=== PATIENT | male | born 1985 | race African-American/Black ===

== ENCOUNTER → 2016-09-22 | Emergency (ER) | payer OTHER ==
[~2016-09-22] VITALS: Ht 170.2 cm; Wt 92.5 kg
[~2016-09-22] MED LIST: BACTRIM DS TAB1 EAC1 ORAL; BACTRIM-DS1 EA ORAL; CLINDAMYCIN HC150 MG ORAL; IBUPROFEN600 MG ORAL; KEFLEX500 MG ORAL; PERCOCET 5-3251 EACH ORAL
[2016-09-22 20:45] VITALS: BP 115/70
[2016-09-22 21:05] VITALS: BP 115/70
--- NOTE | 2016-09-24 07:55 | Emergency Room Report ---
History of Present Illness General Chief Complaint: Skin Rash/Abscess Source: Patient Present Illness HPI 31-year-old male presents ED for evaluation of left thumb pain and swelling. Patient states that her last 10 days he has had pain and swelling to his left thumb. patient believes she was stuck with a splinter in his left thumb at work and he pulled it out. Tetanus is up-to-date. Patient notes pain and swelling since. Pain as throbbing, 5/10, nonradiating. No aggravating or relieving factors. Denies any discharge. Denies any other associated symptoms. Allergies: Coded Allergies: No Known Allergies (Unverified , 09/22/16) Patient History Past Medical History: none Past Surgical History: none Pertinent Family History: none Social History: Denies: alcohol use, drug use, smoking Immunizations: UTD Reviewed Nursing Documentation: PMH: Agreed, PSxH: Agreed Nursing Documentation-PMH Past Medical History: No Stated History Review of Systems All Other Systems: negative except mentioned in HPI Physical Exam Vital Signs Date Time Temp Pulse Resp B/P Pulse Ox O2 Delivery O2 Flow Rate FiO2 09/22/16 20:35 98.4 84 20 115/70 96 Room Air Sp02 EP Interpretation: reviewed, normal General Appearance: no apparent distress, alert, GCS 15, non-toxic Head: normocephalic Eyes: bilateral eye PERRL, bilateral eye normal inspection ENT: normal ENT inspection Neck: normal inspection Respiratory: normal inspection Cardiovascular #1: normal inspection Gastrointestinal: normal inspection Rectal: deferred Genitourinary: no CVA tenderness Musculoskeletal: swelling - L thumb Neurologic: alert, oriented x3, responsive, motor strength/tone normal, sensory intact, speech normal Psychiatric: normal inspection Skin: normal inspection Lymphatic: normal inspection Medical Decision Making Diagnostic Impression: Primary Impression: Cellulitis of thumb Qualified Codes: L03.012 - Cellulitis of left finger ER Course Hospital Course 31-year-old male presents to ED with redness, swelling to left thumb Differential diagnoses include: Cellulitis, dermatitis, insect bite, abscess Clinical course Patient placed on stretcher. After initial history, physical exam reveals a male in no acute distress. On exam there is a site for mild erythema and swelling to the L thumb. There is no fluctuance. I did not identify any evidence of foreign body. Or fluctuant suggesting abscess will treat with abx Diagnosis - cellulitis of thumb stable and discharged to home with prescription for Keflex. Instructed to followup with PMD. Instructed return to ED if symptoms recur or worsen Last Vital Signs Date Time Temp Pulse Resp B/P Pulse Ox O2 Delivery O2 Flow Rate FiO2 09/22/16 21:05 98.4 84 20 115/70 96 Room Air Status: improved Disposition: HOME, SELF-CARE Condition: Stable Scripts Cephalexin* (KEFLEX*) 500 Mg Capsule 500 MG ORAL Q6H, #28 CAP 0 Refills Prov: SHERRI LARSEN M.D. 09/22/16 Ibuprofen* (MOTRIN*) 600 Mg Tablet 600 MG ORAL Q8H Y for For Pain, #30 TAB 0 Refills Prov: SHERRI LARSEN M.D. 09/22/16 Referrals: [facility]ERR[facility] (PCP) Patient Instructions: Cellulitis, [id number] SHERRI LARSEN M.D. Sep 24, 2016 07:55
== END | disposition home or self-care (01) ==
LOC: EMR 20:52
DX: L03.012 Cellulitis of left finger (principal)
CPT/HCPCS: 99282

== ENCOUNTER 2016-09-25 20:19 | Inpatient (IN) | payer OTHER ==
[~2016-09-25] VITALS: Ht 170.2 cm; Wt 92.5 kg
[~2016-09-25 20:19] MED LIST changes: -BACTRIM DS TAB1 EAC1 ORAL; -BACTRIM-DS1 EA ORAL; -CLINDAMYCIN HC150 MG ORAL; -PERCOCET 5-3251 EACH ORAL
[2016-09-25 20:41] VITALS: BP 135/72
[2016-09-25] MEDS ORDERED: Ketorolac 30mg Inj IV ONE (21:00)
[2016-09-25] MEDS ORDERED: Lidocaine 1% MPF 10mg/ml 5ml INJ ONE (21:00)
[2016-09-25] MEDS ORDERED: fentaNYL 100 mcg/2 mL IV ONE (21:00)
[2016-09-25] MEDS ORDERED: Vancomycin 1.5gm/D5W 300ml 325 ML IVPB ONE (21:00)
[2016-09-25 22:16] LABS: BASOPHILS % (AUTO) 1.1 % (0.0-2.0); EOSINOPHILS % (AUTO) 2.2 % (0.0-3.0); LYMPHOCYTES % (AUTO) 30.8 % (20.0-45.0); MEAN CORPUSCULAR HEMOGLOBIN 29.5 PG (27.0-31.0); MEAN CORPUSCULAR HGB CONC 31.9 G/DL (32.0-36.0); MEAN CORPUSCULAR VOLUME 92 FL (80-99); MEAN PLATELET VOLUME 6.4 FL (6.5-10.1); MONOCYTES % (AUTO) 7.4 % (1.0-10.0); NEUTROPHILS % (AUTO) 58.5 % (45.0-75.0); PLATELET COUNT 251 K/UL (150-450); RED BLOOD COUNT 4.56 M/UL (4.70-6.10); WHITE BLOOD COUNT 10.7 K/UL (4.8-10.8)
[2016-09-25 22:23] LABS: TROPONIN I < 0.30 ng/mL (<=0.30)
[2016-09-25 22:26] LABS: ALANINE AMINOTRANSFERASE 38 U/L (3-41); ALBUMIN/GLOBULIN RATIO 1.4 (1.0-2.7); ANION GAP 15 (5-15); ASPARTATE AMINO TRANSFERASE 20 U/L (5-40); CALCIUM 9.6 mg/dL (8.6-10.2); CARBON DIOXIDE 26 mEQ/L (20-30); CHLORIDE 101 mEQ/L (98-107); CREATININE 0.9 mg/dL (0.7-1.2); GLOMERULAR FILTRATION RATE > 60 mL/min (>60); HEMOLYSIS 4; POTASSIUM 3.4 mEQ/L (3.4-4.9); SODIUM 142 mEQ/L (135-145); TOTAL PROTEIN 7.3 g/dL (6.6-8.7)
--- NOTE | 2016-09-25 23:24 | Emergency Room Report ---
History of Present Illness General Chief Complaint: General Complaint Source: Patient Present Illness [facility] The patient presents with several days of worsening pain in his left thumb he was seen here the night ago and started on Keflex. Thumb has continued to swell and get worse. The nail has changed color. The patient states his last tetanus was less than 10 years ago. He been taking the Keflex and Motrin but the pain is severe at this time. It radiates up into his hand and also into his index finger also. He has some decreased range of motion there. The patient works as moving boxes and also plays basketball and doesn't remember injuring the thumb. R handed. His noticed that he had sweats last night. He denies any chills or fevers. No nausea vomiting diarrhea dysuria chest pain shortness of breath. Allergies: Coded Allergies: No Known Allergies (Unverified , 09/22/16) Patient History Past Medical History: see triage record Social History: Reports: smoking Social History Narrative Reviewed Nursing Documentation: PMH: Agreed, PSxH: Agreed Nursing Documentation-PMH Past Medical History: No Stated History Review of Systems All Other Systems: negative except mentioned in HPI Physical Exam Vital Signs Date Time Temp Pulse Resp B/P Pulse Ox O2 Delivery O2 Flow Rate FiO2 09/25/16 20:33 99.1 101 16 99 Room Air 09/25/16 20:41 135/72 Sp02 EP Interpretation: reviewed, normal General Appearance: well appearing, no apparent distress, GCS 15, non-toxic Head: normocephalic, atraumatic Eyes: bilateral eye PERRL, bilateral eye other ENT: hearing grossly normal, normal voice, moist mucus membranes Neck: full range of motion, supple Respiratory: lungs clear, no respiratory distress, speaking full sentences Cardiovascular #1: regular rate, rhythm Cardiovascular #2: 2+ radial (L) Gastrointestinal: normal bowel sounds, non tender, no organomegaly Musculoskeletal: gait/station normal, decreased range of mation - no tendon tenderness, inflammation, swelling, other - 1/2 of nail with pus Neurologic: alert, motor strength/tone normal, sensory intact, normal gait, speech normal, grossly normal Psychiatric: mood/affect normal Skin: normal color, well hydrated, other - paronychium involving 1/2 of nail and swelling pulp of finger Procedures Incision and Drainage Incision and Drainage : Consent: Verbal Blade Size: wedge resection of nail I & D Procedure: betadine prep, sterile drapes applied, sterile dressing applied, gauze wick placed Wound Location: other - L thumb Wound Explored: copious amounts of pus expressed Irrigated w/ Saline (ccs): 20 Anesthesia: 1% Lidocaine - ring block Volume Anesthetic (ccs): 9 Splint Applied?: No - sling applied by tech - position excellent with vasc intact (anesthetized) Sling Applied?: Yes Patient Tolerated: Well Complications: None Progress Wedge resection of nail, minimal debridement of devitalized tissue. Irrigated with NS. Packed - both deep along bone and into pulp and also under nail. Good blood flow after ring block. Finger anesthetized. Tolerated well. Medical Decision Making Diagnostic Impression: Primary Impression: Acute paronychia Additional Impressions: Cellulitis of thumb Qualified Codes: L03.012 - Cellulitis of left finger Possible early osteomyelitis ER Course The patient presents with obvious paronychia and infection of the left thumb. This needs to be incised and drained. Also this infection is fairly significant and IV antibiotics will be started. In addition to that labs will be obtained. This includes a sedimentation rate also. Labs with high normal WBC and elevated ESR. Clinical infection is significant and doubt xray helpful. Large amount of pus was expressed during I and D. A needle 18-gauge was used to try and determine if there is a infection in the pulp of the finger. This came back dry. The wound was packed. The sedimentation rate is elevated concern about possible early osteomyelitis. The patient is admitted to the hospital for continued IV antibiotics and also evaluation by orthopedic doctor. Laboratory Tests Test 09/25/16 21:45 White Blood Count 10.7 K/UL (4.8-10.8) Red Blood Count 4.56 M/UL (4.70-6.10) L Hemoglobin 13.4 G/DL (14.2-18.0) L Hematocrit 42.1 % (42.0-52.0) Mean Corpuscular Volume 92 FL (80-99) Mean Corpuscular Hemoglobin 29.5 PG (27.0-31.0) Mean Corpuscular Hemoglobin Concent 31.9 G/DL (32.0-36.0) L Red Cell Distribution Width 11.0 % (11.6-14.8) L Platelet Count 251 K/UL (150-450) Mean Platelet Volume 6.4 FL (6.5-10.1) L Neutrophils (%) (Auto) 58.5 % (45.0-75.0) Lymphocytes (%) (Auto) 30.8 % (20.0-45.0) Monocytes (%) (Auto) 7.4 % (1.0-10.0) Eosinophils (%) (Auto) 2.2 % (0.0-3.0) Basophils (%) (Auto) 1.1 % (0.0-2.0) Erythrocyte Sedimentation Rate 20 MM/HR (0-15) H Sodium Level 142 mEQ/L (135-145) Potassium Level 3.4 mEQ/L (3.4-4.9) Chloride Level 101 mEQ/L (98-107) Carbon Dioxide Level 26 mEQ/L (20-30) Anion Gap 15 (5-15) Blood Urea Nitrogen 8 mg/dL (7-23) Creatinine 0.9 mg/dL (0.7-1.2) Estimate Glomerular Filtration Rate > 60 mL/min (>60) Glucose Level 135 mg/dL (74-106) H Calcium Level 9.6 mg/dL (8.6-10.2) Total Bilirubin 0.3 mg/dL (0.0-1.2) Aspartate Amino Transferase (AST) 20 U/L (5-40) Alanine Aminotransferase (ALT) 38 U/L (3-41) Alkaline Phosphatase 111 U/L (40-129) Total Creatine Kinase 72 U/L (38-174) Troponin I < 0.30 ng/mL (<=0.30) Total Protein 7.3 g/dL (6.6-8.7) Albumin 4.3 g/dL (3.5-5.2) Globulin 3.0 g/dL Albumin/Globulin Ratio 1.4 (1.0-2.7) Last Vital Signs Date Time Temp Pulse Resp B/P Pulse Ox O2 Delivery O2 Flow Rate FiO2 09/26/16 03:35 98.7 67 19 135/81 99 Room Air Status: improved Disposition: ADMITTED INPATIENT Condition: Serious Scripts Trimethoprim/Sulfamethoxazole (Bactrim Ds Tablet) 1 Each Tablet 1 TAB ORAL TWICE A DAY, #14 TAB Prov: Shemar Howe M.D. 09/25/16 Oxycodone/Acetaminophen 5-325* (PERCOCET 5-325 MG TABLET*) 1 Each Tablet 1 TAB ORAL Q6H Y for For Pain, #10 TAB 0 Refills Prov: Shemar Howe M.D. 09/25/16 Referrals: [facility],REFERRING (PCP) Shemar Howe M.D. Sep 25, 2016 23:24
[2016-09-25 23:27] LABS: ERYTHROCYTE SEDIMENTATION RATE 20 MM/HR (0-15)
[2016-09-25 23:32] VITALS: BP 151/82
[2016-09-25] MEDS ORDERED: PERCOCET 5-3251 EACH ORAL (23:32)
[2016-09-25] MEDS ORDERED: BACTRIM-DS1 EA ORAL (23:32)
[2016-09-26 00:40] LABS: APPEARANCE,URINE CLEAR; KETONES,URINE NEGATIVE (NEGATIVE); NITRITE,URINE NEGATIVE (NEGATIVE); PH,URINE 6 (4.5-8.0); PROTEIN,URINE NEGATIVE (NEGATIVE); UROBILINOGEN,URINE 1 MG/DL (0.0-1.0)
[2016-09-26 00:44] LABS: LEUKOCYTE ESTERASE ,URINE NEGATIVE (NEGATIVE)
[2016-09-26 03:22] VITALS: BP 135/81
[2016-09-26 05:00] VITALS: BP 111/56
[2016-09-26] MEDS ORDERED: Mylanta II UD 30ml ORAL PRN (06:15)
[2016-09-26] MEDS ORDERED: Miralax 17gm pkt ORAL PRN (06:15)
[2016-09-26] MEDS ORDERED: Morphine Sulfate 2mg/ml Inj IVP PRN (06:15)
[2016-09-26] MEDS ORDERED: LORazepam Inj 2mg/ml 1ml IV PRN (06:15)
[2016-09-26] MEDS ORDERED: Zolpidem 5mg tab ORAL PRN (06:15)
[2016-09-26 08:13] VITALS: BP 118/74
[2016-09-26] MEDS ORDERED: Heparin 5000 units/ml inj SUBQ SCH (09:00)
[2016-09-26] MEDS ORDERED: Vancomycin 2gm/D5W 550ml IVPB SCH ×2 (09:00)
[2016-09-26 11:41] VITALS: BP 120/57
--- NOTE | 2016-09-26 12:19 | Consultation ---
Consult Note [facility] [id number] GUILLE MONSON M.D. Sep 26, 2016 12:19
[2016-09-26] MEDS ORDERED: Cefepime HCl 1 GM in D5W 55 ML IV SCH (14:00)
[2016-09-26] MEDS ORDERED: BACTRIM DS TAB1 EAC1 ORAL (14:10)
[2016-09-26] MEDS ORDERED: CLINDAMYCIN HC150 MG ORAL (14:11)
[2016-09-26] MEDS ORDERED: NS 550ML IV ONE (14:49)
[2016-09-26] MEDS ORDERED: Tubing IV Secondary IV ONE (14:49)
--- NOTE | 2016-09-26 16:47 | Consultation ---
DATE OF CONSULTATION: INFECTIOUS DISEASE CONSULTATION CONSULTING PHYSICIAN: Jonathan Hassna M.D. REFERRING PHYSICIAN: Faiza Joseph M.D. REASON FOR CONSULTATION: Evaluation of the patient for left first thumb cellulitis and ingrown nail. HISTORY OF PRESENT ILLNESS: The patient is a 31-year-old male with no significant past medical history, who came to the hospital with chief complaint of swelling and tenderness of the left thumb. The patient has swelling in the area, given Keflex as outpatient without significant improvement. The patient was admitted here with ingrown nail and cellulitis of the left thumb. The patient has been started on IV antibiotics. An Infectious Disease consultation has been requested for further evaluation of the patient. PAST MEDICAL HISTORY: None. PAST SURGICAL HISTORY: None. MEDICATIONS: Cefepime and vancomycin. ALLERGIES: No known drug allergies. SOCIAL HISTORY: Significant for smoking. No history of alcohol or drug abuse. FAMILY HISTORY: Noncontributory. PHYSICAL EXAMINATION: VITAL SIGNS: Temperature 98 degrees, pulse 86, respiratory rate 18, and blood pressure 120/57. HEENT: Mild pale conjunctivae. No icterus. NECK: No lymphadenopathy. CHEST: Coarse breathing sounds. HEART: S1 and S2. ABDOMEN: Soft. EXTREMITIES: The patient has swelling and tenderness of the left thumb. Also the patient's partial nail has been removed. NEUROLOGIC: Awake and alert. LABORATORY AND DIAGNOSTIC DATA: White cell 10, hemoglobin 13, and platelets 251,000. Urinalysis unremarkable. BUN is 8 and creatinine 0.8. ALT, AST and alkaline phosphatase within normal range. ASSESSMENT: The patient is a 31-year-old male with no medical problems who has cellulitis of the left thumb. The patient was admitted with impression of cellulitis, has been started on IV vancomycin. PLAN: 1. We will continue the patient on IV vancomycin in the hospital. Upon discharge, we will switch to Bactrim and clindamycin for one week. 2. Monitor CBC. 3. Monitor BMP. Thank you, Dr. Joseph, for allowing me to participate in the care of this patient. I will follow the patient with you during this hospitalization. Jonathan Hassan M.D. DR: HELEN JOB#: [id number] CC:
[2016-09-27] MEDS ORDERED: PERCOCET 5-3251 EACH ORAL (09:45)
--- NOTE | 2016-09-29 14:15 | Discharge Summary ---
Discharge Summary Hospital Course Date of Admission Sep 26, 2016 at 03:00 Date of Discharge Sep 26, 2016 at 14:50 Admitting Diagnosis Felon/possible osteomyelitis Left thumb HPI Elliot Mills is a 31 year old male who was admitted on Sep 26, 2016 at 03: 00 for Felon/Possible Osteomyelitis Left Thumb Hospital Course dc summary #[id number] Discharge Medications New Medications: Trimethoprim/Sulfamethoxazole 160/800* (Bactrim Ds Tablet*) 1 Each Tablet 1 TAB ORAL TWICE A DAY, #14 TAB Continued Medications: Clindamycin Hcl* (Clindamycin Hcl*) 150 Mg Capsule 300 MG ORAL TID for 7 Days, CAP Ibuprofen* (Motrin*) 600 Mg Tablet 600 MG ORAL Q8H PRN for For Pain, #30 TAB 0 Refills Oxycodone/Acetaminophen 5-325* (Percocet 5-325 Mg Tablet*) 1 Each Tablet 1 TAB ORAL Q6H PRN for For Pain, #8 TAB 0 Refills Trimethoprim/Sulfamethoxazole 160/800* (Bactrim Ds Tablet*) 1 Each Tablet 1 TAB ORAL TWICE A DAY for 7 Days, TAB Discontinued Medications: Cephalexin* (Keflex*) 500 Mg Capsule 500 MG ORAL Q6H, #28 CAP 0 Refills Discharge Condition Upon Discharge: stable Discharge Disposition Patient was discharged to Home (01) Discharge Diagnoses: Discharge Instructions Discharge Instructions Special Instructions I have been assigned to complete a D/C Summary on this account. I was not involved in the patient management Mikala Vance NP (Vanchtein) Sep 29, 2016 14:15
[2016-09-29] MEDS ORDERED: BACTRIM DS TAB1 EAC1 ORAL (14:17)
--- NOTE | 2016-09-30 16:47 | Discharge Summary 2 SIG ---
DATE OF ADMISSION: 09/26/2016 DATE OF DISCHARGE: 09/26/2016 REASON FOR ADMISSION: This is a 31-year-old male who came to the emergency room complaining of the left thumb pain. The patient had already several days of worsening pain in his left thumb . He had seen emergency room doctor the day prior. He was started on the Keflex; however, he came the next day since the thumb continued to swell and get worse , the nail changed color- according to the patient. The patient stated that his tetanus shot was less than 10 years ago. He reported taking Keflex and Motrin, but the pain was more severe and radiated down to his hand and his index finger. He reported decreased range of motion. He denied fever or chills; however, the noted that the patient had sweats last night. No nausea. No vomiting. No diarrhea. No dysuria. No chest pain. No shortness of breath. The patient reported moving boxes and playing basketball; however, he does not remember injuring his thumb. He is right-handed. In the emergency room, the patient subsequently undergone wedge resection of the left thumb nail. The patient was anesthetized and copious amount of pus was expressed, devitalizing tissue minimally debrided, finally irrigated with normal saline and packed. The patient tolerated the procedure well. However, there was a concern of possible cellulitis versus early osteomyelitis. The patient was admitted for ID consult. ADMITTING DIAGNOSES: 1. Acute paronychia. 2. Status post wedge resection of left thumb nail. 3. Cellulitis of left thumb. 4. Rule out early osteomyelitis. HOSPITAL COURSE: The patient admitted to Med/Surg floor. The patient was started on empiric antibiotics. ID consult was requested. ID recommended as inpatient continue IV vancomycin. However, upon discharge, the patient can go home on oral Bactrim and clindamycin for one week. The patient cleared for discharge from infectious disease doctor. At this time, he needs to be closely observed. From ID standpoint, there was no concern for possible osteomyelitis. The patient was discharged that day with followup next day for dressing change and packing in the emergency department. FINAL DIAGNOSES: 1. Acute paronychia. 2. Status post wedge resection of left thumbnail. 3. Cellulitis of left thumb. DISCHARGE MEDICATIONS: See medication reconciliation list. He needs to have Bactrim and clindamycin for one week. DISCHARGE INSTRUCTIONS: The patient was discharged home. Follow up with primary medical doctor for change of packing; however, on 09/27/2015, ID recommended to come to the emergency department , thus emergency room doctor can take a look if his thumb healing well and assess wound as well as change dressing. The patient verbalized understanding. The patient was stable for discharge. I have been assigned to dictate discharge summary on this account and I was not involved in the patient's management. Faiza Joseph M.D. I have been assigned to dictate discharge summary on this account and I was not involved in the patient's management. Mikala MuseGowanda State HospitalGarcia N.PDemar DR: CARLOS JOB#: [id number] CC: DENISE
== END 2016-09-26 14:50 | disposition home or self-care (01) | DRG 383 ==
LOC: EMR 21:10 → 4W 09-26 03:00 → EDBEDREQ 09-26 03:21 → 4W 09-26 03:36 → EMR 09-26 03:36 → 4W 09-26 06:01
PROC: 0HBQXZZ Excision of Finger Nail, External Approach (ICD-10-PCS; principal; 2016-09-26)
DX: L03.012 Cellulitis of left finger (principal); F17.200 Nicotine dependence, unspecified, uncomplicated
CPT/HCPCS: 10060; 36415; 80053; 81003; 82550; 84484; 85025; 85651; J2405

== ENCOUNTER 2016-09-27 07:33 | Emergency (ER) | payer OTHER ==
[~2016-09-27] VITALS: Ht 175.3 cm; Wt 95.3 kg
[~2016-09-27 07:33] MED LIST changes: +BACTRIM DS TAB1 EAC1 ORAL; +BACTRIM-DS1 EA ORAL; +CLINDAMYCIN HC150 MG ORAL; +PERCOCET 5-3251 EACH ORAL
--- NOTE | 2016-09-27 07:53 | Emergency Room Report ---
History of Present Illness General Chief Complaint: Wound Recheck/Suture Removal Source: Patient Present Illness HPI Patient presents after an I and d of a paronychia of L thumb. This is a deep infection in the finger he was admitted for IV antibiotics for 24 hours. He is here for repacking of the wound. He took Aleve before coming in. The pain has been quite a bit better. Denies any fevers. There was a wedge resection. ESR was elevated. Allergies: Coded Allergies: No Known Allergies (Unverified , 09/22/16) Patient History Past Medical History: see triage record Social History: Reports: smoking Social History Narrative works with stocking Reviewed Nursing Documentation: PMH: Agreed, PSxH: Agreed Nursing Documentation-PMH Past Medical History: No Stated History Hx Cardiac Problems: No Hx Cancer: No Hx Gastrointestinal Problems: No Hx Neurological Problems: No Review of Systems Constitutional: Reports: see HPI Respiratory: Denies: shortness of breath Cardiovascular: Denies: chest pain Gastrointestinal: Denies: diarrhea, nausea, vomiting Musculoskeletal: Reports: see HPI Skin: Reports: see HPI Psychiatric: Reports: anxiety Neurological: Reports: see HPI, Denies: numbness Physical Exam Vital Signs Date Time Temp Pulse Resp B/P Pulse Ox O2 Delivery O2 Flow Rate FiO2 09/27/16 07:38 98.2 78 20 135/76 99 Room Air Sp02 EP Interpretation: reviewed, normal General Appearance: well appearing, no apparent distress Head: normocephalic, atraumatic ENT: hearing grossly normal, normal voice Neck: full range of motion, supple Respiratory: no respiratory distress, speaking full sentences Cardiovascular #2: 2+ radial (L) - good cap fill Musculoskeletal: gait/station normal, normal range of motion, swelling - but decreased from 2 days Neurologic: alert, sensory intact - of thumb, normal gait, grossly normal Psychiatric: mood/affect normal Skin: other - swelling is decreased, less erythema. packings in place (nail and next to nail into mid finger) Medical Decision Making Diagnostic Impression: Primary Impression: Encounter for dressing change or suture removal Additional Impression: Acute paronychia ER Course Here for packing replacement. Packing removed. Pain with this. Analgesia given. Lidocaine, hydrogen peroxide. Packing replaced. Discussed care and return. Improved from initial treatment. Patient stable for outpatient observation and treatment. Last Vital Signs Date Time Temp Pulse Resp B/P Pulse Ox O2 Delivery O2 Flow Rate FiO2 09/27/16 10:05 98.2 72 18 132/74 99 Room Air Status: improved Disposition: HOME, SELF-CARE Condition: Improved Scripts Oxycodone/Acetaminophen 5-325* (PERCOCET 5-325 MG TABLET*) 1 Each Tablet 1 TAB ORAL Q6H Y for For Pain, #8 TAB 0 Refills Prov: Shemar Howe M.D. 09/27/16 Referrals: [facility]ERR[facility] (PCP) Shemar Howe M.D. Sep 27, 2016 07:53
[2016-09-27] MEDS ORDERED: Oxycodone/Acetaminophen 5-325 ORAL ONE (08:00)
[2016-09-27] MEDS ORDERED: Hydrogen Peroxide 120ml Bottle TOPIC ONE (08:00)
[2016-09-27] MEDS ORDERED: Lidocaine 1% MPF 10mg/ml 5ml INJ ONE (08:00)
[2016-09-27 08:11] VITALS: BP 135/76
[2016-09-27] MEDS ORDERED: PERCOCET 5-3251 EACH ORAL (09:45)
[2016-09-27 10:03] VITALS: BP 132/74
[2016-09-27 10:05] VITALS: BP 132/74
[2016-09-29] MEDS ORDERED: BACTRIM DS TAB1 EAC1 ORAL (14:17)
== END 2016-09-27 10:07 | disposition home or self-care (01) ==
LOC: EMR 07:48
DX: Z48.00 Encounter for change or removal of nonsurgical wound dressing (principal); F17.200 Nicotine dependence, unspecified, uncomplicated; L03.012 Cellulitis of left finger
CPT/HCPCS: 99283

== ENCOUNTER 2016-09-30 09:09 | Emergency (ER) | payer OTHER ==
[~2016-09-30] VITALS: Ht 175.3 cm; Wt 95.3 kg
[2016-09-30 10:10] VITALS: BP 115/68
--- NOTE | 2016-10-01 15:01 | Emergency Room Report ---
History of Present Illness General Chief Complaint: Wound Recheck/Suture Removal Source: Patient Present Illness HPI 31-year-old male presents ED for wound check. Patient had a abscess drainage of his left thumb. Patient was admitted here and subsequently discharged after drainage and IV antibiotics. Patient came back one more time to ER for wound check. Have packing removed and replaced. Patient is here few days later for packing removal. Denies any pain. Denies any fevers or chills. States that the overall pain and swelling has improved. Denies any discharge. No aggravating relieving factors. Denies any other associated symptoms Allergies: Coded Allergies: No Known Allergies (Unverified , 09/22/16) Patient History Past Medical History: none Past Surgical History: none Pertinent Family History: none Social History: Denies: alcohol use, drug use, smoking Immunizations: UTD Reviewed Nursing Documentation: PMH: Agreed, PSxH: Agreed Nursing Documentation-PMH Past Medical History: No Stated History Hx Cardiac Problems: No Hx Cancer: No Hx Gastrointestinal Problems: No Hx Neurological Problems: No Review of Systems All Other Systems: negative except mentioned in HPI Physical Exam Vital Signs Date Time Temp Pulse Resp B/P Pulse Ox O2 Delivery O2 Flow Rate FiO2 09/30/16 09:20 98.1 79 16 115/68 100 Room Air Sp02 EP Interpretation: reviewed, normal General Appearance: no apparent distress, alert, GCS 15, non-toxic, obese Head: normocephalic Eyes: bilateral eye PERRL, bilateral eye normal inspection ENT: normal ENT inspection Neck: normal inspection Respiratory: normal inspection Cardiovascular #1: normal inspection Gastrointestinal: normal inspection Rectal: deferred Genitourinary: no CVA tenderness Musculoskeletal: back normal, gait/station normal, normal range of motion, non- tender Neurologic: alert, oriented x3, responsive, motor strength/tone normal, sensory intact, speech normal Psychiatric: normal inspection Skin: other - L thumb with nail partially removed. packing in place. no surrounding erythema/induration. no fluctuance Lymphatic: normal inspection Medical Decision Making Diagnostic Impression: Primary Impression: Encounter for removal of abscess packing ER Course Hospital Course 31-year-old M presents to ED for wound check. s/p I&D L thumb abscess Clinical course Patient placed on stretcher. Packing removed. Wound appears clean dry and intact with induration and erythema improved compared to prior visit. No additional intervention at this time. patient will continue on antibiotics Diagnosis - encounter for removal of abscess packing Stable and discharged to home. continue abx as directed. Followup with PMD. Return to ED if any signs of infection develop Last Vital Signs Date Time Temp Pulse Resp B/P Pulse Ox O2 Delivery O2 Flow Rate FiO2 09/30/16 10:10 79 16 115/68 100 Room Air 09/30/16 10:10 98.1 Status: improved Disposition: HOME, SELF-CARE Condition: Stable Referrals: MELANIA KHAN PERRY M.D. Patient Instructions: Wound Check SHERRI LARSEN M.D. Oct 01, 2016 15:01
== END 2016-09-30 10:10 | disposition home or self-care (01) ==
LOC: EMR 09:46
DX: Z48.00 Encounter for change or removal of nonsurgical wound dressing (principal); L02.512 Cutaneous abscess of left hand
CPT/HCPCS: 99281